=== PATIENT | male | born 1980 | race Caucasian/White ===

== ENCOUNTER 2020-06-14 02:59 | Emergency (ER) | payer BC ==
[2020-06-14 03:07] VITALS: BP 133/92; PULSE 102; RESP 16; TEMP 97.8
[2020-06-14] MEDS ORDERED: CEPHALEXIN 500MG STARTER PACK 4 CAP BTL PO STA (03:17)
[2020-06-14] MEDS ORDERED: DIPH,PERTUS(ACELL)TETVAC-LF 0.5 ML VIAL IM ONE (03:17)
[2020-06-14] MEDS ORDERED: LIDOCAINE 1% INJ 10MG/ML (20 ML MDV) SQ ONE (03:17)
[2020-06-14] MEDS ORDERED: IBUPROFEN 600 MG STARTER PACK 4 TAB BTL PO STA (03:24)
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
== END 2020-06-14 03:49 | disposition home or self-care (01) ==
LOC: EC 02:59
DX: S61.041A Puncture wound with foreign body of right thumb without damage to nail, initial encounter (principal); W45.8XXA Other foreign body or object entering through skin, initial encounter; F17.200 Nicotine dependence, unspecified, uncomplicated; Z23 Encounter for immunization
CPT/HCPCS: 90715; 99282; 90471; 96372; J2001